=== PATIENT | male | born 1945 | race Caucasian/White ===

== ENCOUNTER 2018-12-03 07:00 | Inpatient (IN) ==
[2018-12-03] MEDS ORDERED: GLUCAGON 1 MG VIAL IM PRN ×2 (07:09→11:43)
[2018-12-03] MEDS ORDERED: DEXTROSE 10% 25 GM/250 ML BAG IV PRN ×2 (07:09→11:43)
[2018-12-03 10:34] LABS: Basophils # 0.1 10*3/uL (0.0-0.2); Basophils % 0.8 % (0.0-0.8); Eosinophils # 0.2 10*3/uL (0.0-0.87); Eosinophils % 2.6 % (0.00-10.9); Hematocrit 38.8 VOL% (42.0-52.0); Hemoglobin 12.9 GM/DL (14.0-18.0); Immature Granulocytes % 0.4 %; Immature Granulocytes Absolute 0.03 #; Lymphocytes # 1.3 10*3/uL (1.4-4.0); Lymphocytes % 17.6 % (21.2-54.2); Mean Corpuscular HGB Conc 33.2 GM/DL (32-36); Mean Platelet Volume 9.4 FL (9.6-12.0); Monocytes % 11.1 % (1.7-12.7); Neutrophils % 67.5 % (38.7-73.9); Platelet Count 207 T/CUMM (130-400); Red Blood Count 4.04 MC/CUMM (3.8-5.5); Red Cell Distribution Width 13.3 % (9.3-17.3); White Blood Count 7.2 T/CUMM (4-12)
[2018-12-03 10:53] LABS: Albumin 3.8 G/DL (3.4-5.0); Bilirubin,Total 0.4 MG/DL (0.2-1.0); Calcium 9.3 MG/DL (8.5-10.1); Osmolality,Calculated 294.8 MOS/KG (273-304); Total Protein 7.5 G/DL (6.4-8.3)
[2018-12-03] MEDS: INSULIN LISPRO 100 UNIT/ML SUBCUT SCH ×2 (10:58→23:07)
[2018-12-03] MEDS: ISOSORBIDE MONONITRATE 30 MG TABLET PO SCH (10:58)
[2018-12-03] MEDS: ASPIRIN EC 81 MG TABLET PO SCH (10:58)
[2018-12-03] MEDS: FUROSEMIDE 40 MG TABLET PO SCH (10:59)
[2018-12-03] MEDS: ATENOLOL 50 MG TABLET PO SCH ×2 (10:59→22:00)
[2018-12-03] MEDS: LISINOPRIL 20 MG TABLET PO SCH (10:59)
[2018-12-03] MEDS: ATORVASTATIN 40 MG TABLET PO SCH (10:59)
[2018-12-03] MEDS: ALLOPURINOL 100 MG TABLET PO SCH (10:59)
[2018-12-03] MEDS: PANTOPRAZOLE 40 MG TABLET PO SCH (10:59)
[2018-12-03] MEDS: CETIRIZINE 10 MG TABLET PO SCH (11:00)
[2018-12-03] MEDS: CHLORHEXIDINE 0.12% ORAL RINSE 60 ML BOTTLE SWISH/SPIT SCH ×2 (15:39→22:00)
[2018-12-03] MEDS: CHLORHEXIDINE 4% SOLN 118 ML BOTTLE TOP SCH ×2 (15:39→21:00)
[2018-12-03] MEDS: SODIUM CHLORIDE 0.9% 1,000 ML IV SCH (16:04)
[2018-12-03] MEDS: INSULIN REGULAR 100 UNIT/ML SUBCUT SCH ×2 (17:02→22:00)
[2018-12-03 18:12] LABS: ABG Base Excess -3.8 MMOL/L (-2.5-2.5); ABG HCO3 21.3 MMOL/L (20-26); ABG Oxygen Saturation 97.4 % (95-100); ABG PCO2 34.6 MM HG (35-48); ABG PH 7.382 (7.35-7.45); ABG PO2 95.5 MM HG (80-95); ABG TCO2 18.2 MMOL/L (23-27); Allen Test Positive; Pt O2 Delivery Device Room Air
[2018-12-03] MEDS: INSULIN ASPART PROTAMINE/ASPART 70/30 100 UNIT/ML SUBCUT SCH (22:00)
[2018-12-04] MEDS ORDERED: PAPAVERINE 60 MG/2 ML VIAL ONE (04:23)
[2018-12-04] MEDS ORDERED: VANCOMYCIN 1,000 MG VIAL ONE ×2 (04:24→12:01)
[2018-12-04] MEDS: CHLORHEXIDINE 4% SOLN 118 ML BOTTLE TOP SCH (05:30)
[2018-12-04] MEDS ORDERED: CEFUROXIME INJ 1,500 MG in SYRINGE 1 EACH IV ONE (06:00)
[2018-12-04] MEDS ORDERED: DIAZEPAM 5 MG TABLET PO ONE (06:00)
[2018-12-04] MEDS ORDERED: SUFentanil 250 MCG/5 ML AMP ONE (06:23)
[2018-12-04] MEDS ORDERED: VECURONIUM 10 MG VIAL IV ONE (06:23)
[2018-12-04] MEDS ORDERED: AMINOCAPROIC ACID 5,000 MG/20 ML VIAL ONE (06:23)
[2018-12-04] MEDS ORDERED: PHENYLEPHRINE DRIP 20 MG/250 ML PREMIX IV ONE (06:23)
[2018-12-04] MEDS ORDERED: MIDAZOLAM 10 MG/2 ML VIAL ONE (06:23)
[2018-12-04] MEDS ORDERED: HEPARIN/NACL 0.9% 2 UNITS/ML 500 ML IV ONE (06:24)
[2018-12-04] MEDS ORDERED: CEFUROXIME 1,500 MG VIAL ONE (07:11)
[2018-12-04] MEDS ORDERED: SODIUM BICARBONATE 50 MEQ/50 ML VIAL IV ONE ×4 (07:53→19:00)
[2018-12-04] MEDS ORDERED: NITROPRUSSIDE 50 MG/2 ML VIAL ONE (07:53)
[2018-12-04] MEDS ORDERED: PHENYLEPHRINE DRIP 40 MG/250 ML PREMIX IV ONE (07:53)
[2018-12-04] MEDS ORDERED: CALCIUM CHLORIDE 1,000 MG/10 ML SYRINGE IV ONE (07:53)
[2018-12-04] MEDS ORDERED: ALBUMIN 5% 12.5 GM/250 ML VIAL IV ONE (07:54)
[2018-12-04] MEDS ORDERED: POTASSIUM CHLORIDE RIDER 100 ML IV ONE (07:54)
[2018-12-04 07:57] LABS: ABG HCO3 21.1 MMOL/L (20-26); ABG Oxygen Saturation 99.5 % (95-100); ABG PH 7.353 (7.35-7.45); ABG TCO2 18.7 MMOL/L (23-27); Glucose Heart Surgery 171 MG/DL (74-106); Hematocrit Heart Surgery 37.9 PERCENT (42-52); Hemoglobin Heart Surgery 12.3 G/DL (14.0-18.0); Ionized Calcium Arterial 1.26 MMOL/L (1.21-1.46); PH Patient Temp Arterial 7.353; Patient Temperature 37 CELCIUS; Potassium Heart/CVR 4.8 MMOL/L (3.5-5.1); Sodium Heart/CVR 138 MMOL/L (135-145)
[2018-12-04 08:19] LABS: Apearance,Urine CLEAR (Clear); Bilirubin,Urine Negative (Negative); Blood, Urine Negative (Negative); Glucose,Urine (UA) 50 mg/dL (Negative); Ketones,Urine Negative (Negative); Mucus,Urine Occasional /LPF (Occasional); Nitrite,Urine Negative (Negative); Protein,Urine Negative; Squamous Epithelial Cell,Urine Occasional /HPF (0-10); Urine Color Yellow (Yellow); Urine Specific Gravity 1.014 (1.001-1.035); Urine Urobilinogen < 2.0 EU/DL (0.2-1.0)
[2018-12-04 09:40] LABS: Hematocrit Heart Surgery 28.9 PERCENT (42-52); Hemoglobin Heart Surgery 9.3 G/DL (14.0-18.0); PCO2 Patient Temp Venous 37.7 MM HG; PH Patient Temp Venous 7.394; PO2 Patient Temp Venous 35.9 MM HG; Potassium Heart/CVR 5.9 MMOL/L (3.5-5.1); VBG Base Excess -1.4 MEQ/L (0-4); VBG HCO3 22.9 MEQ/L (24-28); VBG Oxygen Saturation 76.7 %; VBG PCO2 43.6 MMHG (41-51); VBG PH 7.351; VBG PO2 44.1 MMHG (17-40)
[2018-12-04 10:15] LABS: Hematocrit Heart Surgery 31.9 PERCENT (42-52); Hemoglobin Heart Surgery 10.3 G/DL (14.0-18.0); PCO2 Patient Temp Venous 34.6 MM HG; PH Patient Temp Venous 7.408; PO2 Patient Temp Venous 40.3 MM HG; Potassium Heart/CVR 5.9 MMOL/L (3.5-5.1); VBG Base Excess -2.3 MEQ/L (0-4); VBG HCO3 22.2 MEQ/L (24-28); VBG Oxygen Saturation 82.7 %; VBG PH 7.364; VBG PO2 49.5 MMHG (17-40)
[2018-12-04 11:13] LABS: ABG Base Excess -3.8 MMOL/L (-2.5-2.5); ABG HCO3 21.3 MMOL/L (20-26); ABG Oxygen Saturation 99.1 % (95-100); ABG PCO2 38.8 MM HG (35-48); ABG TCO2 19.5 MMOL/L (23-27); Glucose Heart Surgery 270 MG/DL (74-106); Hematocrit Heart Surgery 32.3 PERCENT (42-52); Hemoglobin Heart Surgery 10.5 G/DL (14.0-18.0); Ionized Calcium Arterial 1.29 MMOL/L (1.21-1.46); PCO2 Patient Temp Arterial 38.8 MMHG; Patient Temperature 37 CELCIUS; Potassium Heart/CVR 5.2 MMOL/L (3.5-5.1); Sodium Heart/CVR 133 MMOL/L (135-145)
[2018-12-04] MEDS ORDERED: THROMBIN TOPICAL (RECOMBINANT) 5,000 UNIT VIAL TOP ONE (11:16)
[2018-12-04] MEDS ORDERED: ALBUMIN 25% 25 GM/100 ML VIAL IV ONE (11:20)
[2018-12-04] MEDS ORDERED: DEXTROSE 5% KCL 20 MEQ 20 MEQ/1,000 ML BAG IV ONE (11:20)
[2018-12-04] MEDS ORDERED: MANNITOL 100 GM/500 ML BAG IV ONE (11:20)
[2018-12-04] MEDS ORDERED: methylPREDNISolone SOD SUC 1,000 MG/8 ML VIAL ONE (11:21)
[2018-12-04] MEDS ORDERED: FUROSEMIDE 20 MG/2 ML VIAL ONE (11:21)
[2018-12-04] MEDS ORDERED: PROTAMINE SULFATE 250 MG/25 ML VIAL IV ONE (11:21)
[2018-12-04] MEDS ORDERED: PROTAMINE SULFATE 50 MG/5 ML VIAL IV ONE (11:21)
[2018-12-04] MEDS ORDERED: MAGNESIUM SULFATE 5 GM/10 ML VIAL IV ONE (11:21)
[2018-12-04] MEDS ORDERED: HEPARIN 10,000 UNIT/10 ML VIAL ONE (11:21)
[2018-12-04] MEDS: INSULIN REGULAR 100 UNIT/ML SUBCUT SCH (11:41)
[2018-12-04] MEDS: ISOSORBIDE MONONITRATE 30 MG TABLET PO SCH (11:42)
[2018-12-04] MEDS: LISINOPRIL 20 MG TABLET PO SCH (11:42)
[2018-12-04] MEDS: CHLORHEXIDINE 0.12% ORAL RINSE 60 ML BOTTLE SWISH/SPIT SCH ×2 (11:42→22:08)
[2018-12-04] MEDS: FUROSEMIDE 40 MG TABLET PO SCH (11:42)
[2018-12-04] MEDS: ASPIRIN EC 81 MG TABLET PO SCH (11:42)
[2018-12-04] MEDS: SODIUM CHLORIDE 0.9% 1,000 ML IV SCH (11:42)
[2018-12-04] MEDS: ATORVASTATIN 40 MG TABLET PO SCH (11:42)
[2018-12-04] MEDS: INSULIN ASPART PROTAMINE/ASPART 70/30 100 UNIT/ML SUBCUT SCH (11:42)
[2018-12-04] MEDS: CETIRIZINE 10 MG TABLET PO SCH (11:43)
[2018-12-04] MEDS: ATENOLOL 50 MG TABLET PO SCH (11:43)
[2018-12-04] MEDS: ALLOPURINOL 100 MG TABLET PO SCH (11:43)
[2018-12-04] MEDS: PANTOPRAZOLE 40 MG TABLET PO SCH (11:43)
[2018-12-04] MEDS ORDERED: MORPHINE 10 MG/1 ML VIAL IV PRN (12:47)
[2018-12-04] MEDS ORDERED: VECURONIUM 10 MG VIAL IV PRN ×2 (12:47)
[2018-12-04] MEDS ORDERED: CALCIUM CHLORIDE 1,000 MG/10 ML SYRINGE IV PRN (12:47)
[2018-12-04] MEDS ORDERED: CALCIUM CHLORIDE 1,000 MG/10 ML VIAL IV ONE (12:47)
[2018-12-04] MEDS ORDERED: DEXTROSE 50% 25 GM/50 ML VIAL IV PRN ×2 (12:47)
[2018-12-04] MEDS ORDERED: ONDANSETRON 4 MG/2 ML VIAL IV PRN (12:47)
[2018-12-04] MEDS ORDERED: MAGNESIUM SULF RIDER 4 GM in PREMIX 1 EACH IV PRN (12:47)
[2018-12-04] MEDS ORDERED: MIDAZOLAM 2 MG/2 ML VIAL IV PRN (12:47)
[2018-12-04] MEDS ORDERED: MORPHINE 4 MG/1 ML VIAL IV PRN (12:47)
[2018-12-04] MEDS ORDERED: MAGNESIUM SULF RIDER 2 GM in PREMIX 1 EACH IV PRN (12:47)
[2018-12-04] MEDS ORDERED: LACTATED RINGERS 250 ML IV PRN (12:47)
[2018-12-04] MEDS ORDERED: PHENYLEPHRINE DRIP 40 MG/250 ML PREMIX IV PRN (12:47)
[2018-12-04] MEDS ORDERED: PROPOFOL 200 MG/20 ML VIAL IV ONE (12:47)
[2018-12-04] MEDS ORDERED: NITROPRUSSIDE 100 MG in DEXTROSE 5% 250 ML IV PRN (12:47)
[2018-12-04] MEDS ORDERED: MIDAZOLAM 10 MG/2 ML VIAL IV PRN (12:47)
[2018-12-04] MEDS ORDERED: POTASSIUM CHLORIDE RIDER 10 MEQ in PREMIX 1 EACH IV PRN (12:47)
[2018-12-04] MEDS ORDERED: SEVOFLURANE 1 UNIT/15 MINUTE INH ONE (12:47)
[2018-12-04] MEDS ORDERED: ACETAMINOPHEN 650 MG SUPP RECTAL PRN (12:47)
[2018-12-04] MEDS ORDERED: INSULIN REGULAR 100 UNIT/ML IV ONE (12:47)
[2018-12-04] MEDS ORDERED: ETOMIDATE 40 MG/20 ML VIAL IV ONE (12:48)
[2018-12-04] MEDS ORDERED: SUCCINYLCHOLINE 200 MG/10 ML VIAL ONE (12:48)
[2018-12-04] MEDS ORDERED: GLYCOPYRROLATE 0.4 MG/2 ML VIAL ONE (12:48)
[2018-12-04] MEDS ORDERED: SODIUM CHLORIDE 0.9% 2,000 ML IV ONE (12:48)
[2018-12-04] MEDS ORDERED: SODIUM CHLORIDE 0.9% 100 ML IV ONE (12:48)
[2018-12-04] MEDS ORDERED: PHENYLEPHRINE 1 MG/10 ML SYRINGE IV ONE (12:48)
[2018-12-04 12:57] LABS: ABG Base Excess -5.6 MMOL/L (-2.5-2.5); ABG HCO3 19.8 MMOL/L (20-26); ABG Oxygen Saturation 96.8 % (95-100); ABG PCO2 38.8 MM HG (35-48); ABG PO2 92.6 MM HG (80-95); ABG TCO2 18.3 MMOL/L (23-27); Glucose Heart Surgery 269 MG/DL (74-106); Hematocrit Heart Surgery 31.4 PERCENT (42-52); Hemoglobin Heart Surgery 10.1 G/DL (14.0-18.0)
[2018-12-04] MEDS ORDERED: SODIUM CHLORIDE 0.45% 1,000 ML IV SCH ×2 (13:00)
[2018-12-04 13:03] LABS: Basophils # 0.1 10*3/uL (0.0-0.2); Basophils % 0.4 % (0.0-0.8); Eosinophils # 0.1 10*3/uL (0.0-0.87); Eosinophils % 0.4 % (0.00-10.9); Hematocrit 29.7 VOL% (42.0-52.0); Hemoglobin 9.8 GM/DL (14.0-18.0); Immature Granulocytes % 0.8 %; Immature Granulocytes Absolute 0.09 #; Lymphocytes # 0.8 10*3/uL (1.4-4.0); Lymphocytes % 6.3 % (21.2-54.2); Mean Corpuscular Volume 97.1 FL (87-102); Mean Platelet Volume 10.1 FL (9.6-12.0); Monocytes % 3.2 % (1.7-12.7); Neutrophils % 88.9 % (38.7-73.9); Platelet Count 195 T/CUMM (130-400); Red Blood Count 3.06 MC/CUMM (3.8-5.5); Red Cell Distribution Width 13.6 % (9.3-17.3)
[2018-12-04 13:09] LABS: INR 1.1; PT Patient Result 11.9 SECS; Partial Thromboplastin Time 26.1 SECS (0-40)
[2018-12-04] MEDS: INSULIN REGULAR DRIP 100 ML IV SCH ×2 (13:10→19:45)
[2018-12-04 13:21] LABS: CKMB % 4.3 %
[2018-12-04] MEDS: POTASSIUM CHLORIDE RIDER 20 MEQ in PREMIX 1 EACH IV PRN ×2 (13:22→22:06)
[2018-12-04 13:24] LABS: Troponin I 5.01 NG/ML (0.00-0.045)
[2018-12-04 13:40] LABS: Albumin 3.1 G/DL (3.4-5.0); Calcium 8.4 MG/DL (8.5-10.1); Osmolality,Calculated 296.3 MOS/KG (273-304); Total Protein 5.8 G/DL (6.4-8.3)
[2018-12-04] MEDS: ALBUMIN 5% 12.5 GM in PREMIX 1 EACH IV PRN ×2 (13:40→15:46)
[2018-12-04] MEDS ORDERED: SODIUM CHLORIDE 0.9% 250 ML IV ONE (13:44)
[2018-12-04] MEDS: SODIUM CHLORIDE 0.9% 250 ML IV PRN ×6 (14:54→18:02)
[2018-12-04] MEDS: INSULIN REGULAR 100 UNIT/ML IV PRN ×2 (15:04→17:34)
[2018-12-04 15:50] LABS: ABG HCO3 20.3 MMOL/L (20-26); ABG Oxygen Saturation 97.9 % (95-100); ABG PCO2 41.6 MM HG (35-48); ABG TCO2 19.3 MMOL/L (23-27); Glucose Heart Surgery 224 MG/DL (74-106); Hematocrit Heart Surgery 30.5 PERCENT (42-52); Hemoglobin Heart Surgery 9.8 G/DL (14.0-18.0); Potassium Heart/CVR 4.2 MMOL/L (3.5-5.1)
[2018-12-04 18:15] LABS: ABG Base Excess -4.3 MMOL/L (-2.5-2.5); ABG HCO3 20.8 MMOL/L (20-26); ABG Oxygen Saturation 96.3 % (95-100); ABG PCO2 41.2 MM HG (35-48); ABG PH 7.324 (7.35-7.45); ABG PO2 88.4 MM HG (80-95); ABG TCO2 19.7 MMOL/L (23-27); Glucose Heart Surgery 177 MG/DL (74-106); Hematocrit Heart Surgery 30.5 PERCENT (42-52); Hemoglobin Heart Surgery 9.8 G/DL (14.0-18.0)
[2018-12-04 20:13] LABS: ABG HCO3 21.9 MMOL/L (20-26); ABG Oxygen Saturation 97.6 % (95-100); ABG PCO2 39.1 MM HG (35-48); ABG PH 7.361 (7.35-7.45); ABG PO2 98.8 MM HG (80-95); ABG TCO2 20.3 MMOL/L (23-27); Glucose Heart Surgery 169 MG/DL (74-106); Hematocrit Heart Surgery 29.2 PERCENT (42-52); Hemoglobin Heart Surgery 9.4 G/DL (14.0-18.0); Potassium Heart/CVR 4.2 MMOL/L (3.5-5.1)
[2018-12-04] MEDS: CEFUROXIME INJ 1,500 MG in SYRINGE 1 EACH IV SCH (21:32)
[2018-12-04 21:48] LABS: ABG Base Excess -3.3 MMOL/L (-2.5-2.5); ABG HCO3 21.6 MMOL/L (20-26); ABG Oxygen Saturation 95.2 % (95-100); ABG PCO2 38.1 MM HG (35-48); ABG PH 7.363 (7.35-7.45); ABG PO2 76.7 MM HG (80-95); Glucose Heart Surgery 167 MG/DL (74-106); Hematocrit Heart Surgery 28.9 PERCENT (42-52); Hemoglobin Heart Surgery 9.3 G/DL (14.0-18.0); Potassium Heart/CVR 4.1 MMOL/L (3.5-5.1)
[2018-12-04 21:57] LABS: CKMB % 3.5 %
[2018-12-04 21:58] LABS: Troponin I 3.59 NG/ML (0.00-0.045)
[2018-12-04] MEDS ORDERED: FUROSEMIDE 40 MG/4 ML VIAL IV PRN (22:00)
[2018-12-05 03:37] LABS: ABG Base Excess -2.2 MMOL/L (-2.5-2.5); ABG HCO3 22.4 MMOL/L (20-26); ABG Oxygen Saturation 93.1 % (95-100); ABG PCO2 36.1 MM HG (35-48); ABG PH 7.395 (7.35-7.45); ABG PO2 68.1 MM HG (80-95); ABG TCO2 19.3 MMOL/L (23-27); Glucose Heart Surgery 138 MG/DL (74-106); Hemoglobin Heart Surgery 13.3 G/DL (14.0-18.0); Potassium Heart/CVR 4.2 MMOL/L (3.5-5.1)
[2018-12-05 03:38] LABS: Hematocrit Heart Surgery 40.8 PERCENT (42-52)
[2018-12-05 03:51] LABS: Basophils % 0.1 % (0.0-0.8); Hematocrit 26.7 VOL% (42.0-52.0); Hemoglobin 8.7 GM/DL (14.0-18.0); Immature Granulocytes % 0.7 %; Immature Granulocytes Absolute 0.09 #; Lymphocytes # 0.5 10*3/uL (1.4-4.0); Lymphocytes % 3.9 % (21.2-54.2); Mean Corpuscular HGB Conc 32.6 GM/DL (32-36); Mean Corpuscular Volume 96.7 FL (87-102); Monocytes % 3.1 % (1.7-12.7); Neutrophils % 92.2 % (38.7-73.9); Platelet Count 172 T/CUMM (130-400); Red Blood Count 2.76 MC/CUMM (3.8-5.5); Red Cell Distribution Width 13.8 % (9.3-17.3); White Blood Count 12.7 T/CUMM (4-12)
[2018-12-05 04:04] LABS: Albumin 3.4 G/DL (3.4-5.0); Bilirubin,Direct 0.16 MG/DL (0.0-0.20); Bilirubin,Total 0.6 MG/DL (0.2-1.0); Calcium 8.4 MG/DL (8.5-10.1); Osmolality,Calculated 293.8 MOS/KG (273-304); Total Protein 6.1 G/DL (6.4-8.3)
[2018-12-05 04:06] LABS: Troponin I 3.05 NG/ML (0.00-0.045)
[2018-12-05 04:17] LABS: Lymphocytes 4 % (20-55); Segmented Neutrophils 95 % (50-85); Total Cells Counted 100
[2018-12-05 04:18] LABS: Hypochromasia 1+; Platelet Estimate Adequate
[2018-12-05 04:45] LABS: ABG Base Excess -2.6 MMOL/L (-2.5-2.5); ABG HCO3 22.2 MMOL/L (20-26); ABG Oxygen Saturation 97.3 % (95-100); ABG PCO2 34.9 MM HG (35-48); ABG PH 7.401 (7.35-7.45); ABG PO2 89.5 MM HG (80-95); Glucose Heart Surgery 130 MG/DL (74-106); Hematocrit Heart Surgery 27.4 PERCENT (42-52); Hemoglobin Heart Surgery 8.8 G/DL (14.0-18.0); Potassium Heart/CVR 4.1 MMOL/L (3.5-5.1)
[2018-12-05 04:52] LABS: Basophils % 0.2 % (0.0-0.8); Hematocrit 26.3 VOL% (42.0-52.0); Hemoglobin 8.6 GM/DL (14.0-18.0); Immature Granulocytes % 0.7 %; Immature Granulocytes Absolute 0.09 #; Lymphocytes # 0.5 10*3/uL (1.4-4.0); Mean Corpuscular HGB Conc 32.7 GM/DL (32-36); Mean Corpuscular Volume 98.1 FL (87-102); Mean Platelet Volume 9.7 FL (9.6-12.0); Monocytes % 3.7 % (1.7-12.7); Neutrophils % 91.4 % (38.7-73.9); Platelet Count 169 T/CUMM (130-400); Red Blood Count 2.68 MC/CUMM (3.8-5.5); Red Cell Distribution Width 13.9 % (9.3-17.3); White Blood Count 13.2 T/CUMM (4-12)
[2018-12-05 05:12] LABS: Hypochromasia 1+; Lymphocytes 5 % (20-55); Platelet Estimate Adequate; Segmented Neutrophils 94 % (50-85); Total Cells Counted 100
[2018-12-05] MEDS: INSULIN REGULAR DRIP 100 ML IV SCH (06:13)
[2018-12-05] MEDS: POTASSIUM CHLORIDE RIDER 20 MEQ in PREMIX 1 EACH IV PRN (06:36)
[2018-12-05] MEDS: SODIUM CHLORIDE 0.9% 250 ML IV PRN (06:45)
[2018-12-05] MEDS ORDERED: INSULIN REGULAR 100 UNIT/ML SUBCUT SCH (08:00)
[2018-12-05] MEDS ORDERED: GLUCAGON 1 MG VIAL IM PRN ×3 (08:17→11:11)
[2018-12-05] MEDS: CEFUROXIME INJ 1,500 MG in SYRINGE 1 EACH IV SCH (08:23)
[2018-12-05] MEDS: CHLORHEXIDINE 0.12% ORAL RINSE 60 ML BOTTLE SWISH/SPIT SCH ×3 (08:24→20:33)
[2018-12-05] MEDS: metFORMIN 500 MG TABLET PO SCH ×2 (09:15→20:33)
[2018-12-05] MEDS: ISOSORBIDE MONONITRATE 30 MG TABLET PO SCH (09:15)
[2018-12-05] MEDS: ALLOPURINOL 100 MG TABLET PO SCH (09:15)
[2018-12-05] MEDS: LISINOPRIL 20 MG TABLET PO SCH (09:15)
[2018-12-05] MEDS: ASPIRIN EC 81 MG TABLET PO SCH (09:16)
[2018-12-05] MEDS: ATORVASTATIN 40 MG TABLET PO SCH (09:16)
[2018-12-05] MEDS: ATENOLOL 50 MG TABLET PO SCH ×2 (09:16→20:33)
[2018-12-05] MEDS: CETIRIZINE 10 MG TABLET PO SCH (09:20)
[2018-12-05] MEDS ORDERED: MAGNESIUM SULF RIDER 4 GM in PREMIX 1 EACH IV PRN (11:11)
[2018-12-05] MEDS ORDERED: SODIUM CHLOR 0.45% KCL 20 MEQ 20 MEQ/1,000 ML BAG IV SCH (11:11)
[2018-12-05] MEDS ORDERED: ONDANSETRON 4 MG/2 ML VIAL IV PRN (11:11)
[2018-12-05] MEDS ORDERED: POTASSIUM CHLORIDE 20 MEQ TABLET PO PRN (11:11)
[2018-12-05] MEDS ORDERED: MAGNESIUM HYDROXIDE SUSP 30 ML UDCUP PO PRN (11:11)
[2018-12-05] MEDS ORDERED: ALUMINUM/MAGNES/SIMETH MAX STR 30 ML UDCUP PO PRN (11:11)
[2018-12-05] MEDS ORDERED: ACETAMINOPHEN 325 MG TABLET PO PRN (11:11)
[2018-12-05] MEDS ORDERED: MAGNESIUM SULF RIDER 2 GM in PREMIX 1 EACH IV PRN (11:11)
[2018-12-05] MEDS ORDERED: MORPHINE 4 MG/1 ML VIAL IV PRN (11:11)
[2018-12-05] MEDS ORDERED: DEXTROSE 50% 25 GM/50 ML VIAL IV PRN ×2 (11:11)
[2018-12-05] MEDS: FERROUS SULFATE 325 MG TABLET PO SCH (12:13)
[2018-12-05] MEDS: PANTOPRAZOLE 40 MG TABLET PO SCH (12:13)
[2018-12-05] MEDS: DOCUSATE SODIUM 100 MG CAPSULE PO SCH (12:13)
[2018-12-05] MEDS: oxyCODONE/ACETAMINOPHEN 5-325 MG TABLET PO PRN ×2 (12:13→19:08)
[2018-12-05] MEDS: ASCORBIC ACID 500 MG TABLET PO SCH (20:33)
[2018-12-06] MEDS: ZALEPLON 5 MG CAPSULE PO PRN (00:02)
[2018-12-06] MEDS: oxyCODONE/ACETAMINOPHEN 5-325 MG TABLET PO PRN ×4 (05:04→20:18)
[2018-12-06 05:18] LABS: Basophils % 0.1 % (0.0-0.8); Hematocrit 26.5 VOL% (42.0-52.0); Hemoglobin 8.5 GM/DL (14.0-18.0); Immature Granulocytes % 1.1 %; Lymphocytes # 0.8 10*3/uL (1.4-4.0); Lymphocytes % 4.1 % (21.2-54.2); Mean Corpuscular HGB Conc 32.1 GM/DL (32-36); Mean Corpuscular Volume 98.9 FL (87-102); Mean Platelet Volume 10.3 FL (9.6-12.0); Monocytes % 7.6 % (1.7-12.7); Neutrophils % 87.1 % (38.7-73.9); Platelet Count 171 T/CUMM (130-400); Red Blood Count 2.68 MC/CUMM (3.8-5.5); Red Cell Distribution Width 14.6 % (9.3-17.3); White Blood Count 18.6 T/CUMM (4-12)
[2018-12-06 05:39] LABS: Band Neutrophils 1 % (0-10); Hypochromasia 1+; Lymphocytes 3 % (20-55); Platelet Estimate Adequate; Segmented Neutrophils 91 % (50-85); Total Cells Counted 100
[2018-12-06 05:44] LABS: Alanine Aminotransferase 27 U/L (16-61); Albumin 3.1 G/DL (3.4-5.0); Alkaline Phosphatase 74 U/L (45-117); Aspartate Amino Transferase 27 U/L (0-37); Bilirubin,Indirect 0.4 MG/DL (0.0-1.0); Blood Urea Nitrogen 48 MG/DL (7-18); Calcium 8.3 MG/DL (8.5-10.1); Glucose 340 MG/DL (74-106); Osmolality,Calculated 300.7 MOS/KG (273-304); Total Protein 6.1 G/DL (6.4-8.3)
[2018-12-06] MEDS ORDERED: FUROSEMIDE 40 MG/4 ML VIAL IV ONE (06:00)
[2018-12-06] MEDS: DOCUSATE SODIUM 100 MG CAPSULE PO SCH (08:55)
[2018-12-06] MEDS: metFORMIN 500 MG TABLET PO SCH ×2 (08:55→20:18)
[2018-12-06] MEDS: LISINOPRIL 20 MG TABLET PO SCH (08:55)
[2018-12-06] MEDS: FERROUS SULFATE 325 MG TABLET PO SCH (08:55)
[2018-12-06] MEDS: ATENOLOL 50 MG TABLET PO SCH ×2 (08:56→20:18)
[2018-12-06] MEDS: ATORVASTATIN 40 MG TABLET PO SCH (08:56)
[2018-12-06] MEDS: ASPIRIN EC 81 MG TABLET PO SCH (08:58)
[2018-12-06] MEDS: PANTOPRAZOLE 40 MG TABLET PO SCH (08:58)
[2018-12-06] MEDS: ISOSORBIDE MONONITRATE 30 MG TABLET PO SCH (08:58)
[2018-12-06] MEDS: ASCORBIC ACID 500 MG TABLET PO SCH ×2 (08:58→20:18)
[2018-12-06] MEDS: CETIRIZINE 10 MG TABLET PO SCH (08:59)
[2018-12-06] MEDS: ALLOPURINOL 100 MG TABLET PO SCH (08:59)
[2018-12-06] MEDS: CHLORHEXIDINE 0.12% ORAL RINSE 60 ML BOTTLE SWISH/SPIT SCH ×2 (09:55→20:24)
[2018-12-06] MEDS: INSULIN LISPRO 100 UNIT/ML SUBCUT SCH ×4 (13:20→22:21)
[2018-12-07] MEDS: INSULIN LISPRO 100 UNIT/ML SUBCUT SCH ×9 (01:35→21:26)
[2018-12-07] MEDS: oxyCODONE/ACETAMINOPHEN 5-325 MG TABLET PO PRN ×3 (05:09→20:51)
[2018-12-07 05:23] LABS: Basophils % 0.2 % (0.0-0.8); Eosinophils # 0.1 10*3/uL (0.0-0.87); Eosinophils % 0.7 % (0.00-10.9); Hematocrit 25.7 VOL% (42.0-52.0); Hemoglobin 8.3 GM/DL (14.0-18.0); Immature Granulocytes % 1.1 %; Immature Granulocytes Absolute 0.14 #; Lymphocytes # 1.7 10*3/uL (1.4-4.0); Lymphocytes % 13.7 % (21.2-54.2); Mean Corpuscular HGB Conc 32.3 GM/DL (32-36); Mean Corpuscular Volume 98.8 FL (87-102); Mean Platelet Volume 10.1 FL (9.6-12.0); Monocytes % 9.8 % (1.7-12.7); NRBC # 0.02 10*3/uL; Neutrophils % 74.5 % (38.7-73.9); Platelet Count 163 T/CUMM (130-400); Red Cell Distribution Width 14.3 % (9.3-17.3); White Blood Count 12.3 T/CUMM (4-12)
[2018-12-07 05:49] LABS: Alanine Aminotransferase 22 U/L (16-61); Alkaline Phosphatase 68 U/L (45-117); Aspartate Amino Transferase 21 U/L (0-37); Bilirubin,Indirect 0.7 MG/DL (0.0-1.0); Blood Urea Nitrogen 56 MG/DL (7-18); Calcium 8.6 MG/DL (8.5-10.1); Glucose 129 MG/DL (74-106); Osmolality,Calculated 296.4 MOS/KG (273-304); Total Protein 6.2 G/DL (6.4-8.3); Troponin I 0.835 NG/ML (0.00-0.045)
[2018-12-07] MEDS: ASPIRIN EC 81 MG TABLET PO SCH (09:50)
[2018-12-07] MEDS: LISINOPRIL 20 MG TABLET PO SCH (09:51)
[2018-12-07] MEDS: FERROUS SULFATE 325 MG TABLET PO SCH (09:51)
[2018-12-07] MEDS: ASCORBIC ACID 500 MG TABLET PO SCH ×2 (09:51→20:51)
[2018-12-07] MEDS: CHLORHEXIDINE 0.12% ORAL RINSE 60 ML BOTTLE SWISH/SPIT SCH ×2 (09:51→21:05)
[2018-12-07] MEDS: ISOSORBIDE MONONITRATE 30 MG TABLET PO SCH (09:51)
[2018-12-07] MEDS: DOCUSATE SODIUM 100 MG CAPSULE PO SCH (09:51)
[2018-12-07] MEDS: ATENOLOL 50 MG TABLET PO SCH ×2 (09:51→20:51)
[2018-12-07] MEDS: metFORMIN 500 MG TABLET PO SCH ×2 (09:51→20:51)
[2018-12-07] MEDS: ALLOPURINOL 100 MG TABLET PO SCH (09:51)
[2018-12-07] MEDS: ATORVASTATIN 40 MG TABLET PO SCH (09:51)
[2018-12-07] MEDS: PANTOPRAZOLE 40 MG TABLET PO SCH (09:51)
[2018-12-07] MEDS: CETIRIZINE 10 MG TABLET PO SCH (09:52)
[2018-12-07] MEDS: ZALEPLON 5 MG CAPSULE PO PRN (22:20)
[2018-12-08] MEDS: oxyCODONE/ACETAMINOPHEN 5-325 MG TABLET PO PRN (04:39)
[2018-12-08] MEDS ORDERED: hydrALAZINE 20 MG/1 ML VIAL IV PRN (06:51)
[2018-12-08] MEDS: INSULIN LISPRO 100 UNIT/ML SUBCUT SCH ×7 (08:30→23:10)
[2018-12-08] MEDS: FERROUS SULFATE 325 MG TABLET PO SCH (09:52)
[2018-12-08] MEDS: BENZONATATE 100 MG CAPSULE PO SCH ×3 (09:52→20:25)
[2018-12-08] MEDS: CHLORHEXIDINE 0.12% ORAL RINSE 60 ML BOTTLE SWISH/SPIT SCH ×2 (09:52→20:24)
[2018-12-08] MEDS: PANTOPRAZOLE 40 MG TABLET PO SCH (09:52)
[2018-12-08] MEDS: ASCORBIC ACID 500 MG TABLET PO SCH ×2 (09:52→20:25)
[2018-12-08] MEDS: ASPIRIN EC 81 MG TABLET PO SCH (09:52)
[2018-12-08] MEDS: LISINOPRIL 20 MG TABLET PO SCH (09:52)
[2018-12-08] MEDS: DOCUSATE SODIUM 100 MG CAPSULE PO SCH (09:53)
[2018-12-08] MEDS: ATORVASTATIN 40 MG TABLET PO SCH (09:53)
[2018-12-08] MEDS: ISOSORBIDE MONONITRATE 30 MG TABLET PO SCH (09:53)
[2018-12-08] MEDS: ATENOLOL 50 MG TABLET PO SCH ×2 (09:53→20:25)
[2018-12-08] MEDS: CETIRIZINE 10 MG TABLET PO SCH (09:53)
[2018-12-08] MEDS: ALLOPURINOL 100 MG TABLET PO SCH (09:53)
[2018-12-08] MEDS: HYDROcodone/CHLORPHENIRAMINE ER 5 ML UDCUP PO PRN ×2 (12:40→20:24)
[2018-12-08] MEDS: ZALEPLON 5 MG CAPSULE PO PRN (20:25)
[2018-12-09 05:13] LABS: Basophils % 0.2 % (0.0-0.8); Eosinophils # 0.2 10*3/uL (0.0-0.87); Eosinophils % 2.8 % (0.00-10.9); Hemoglobin 8.2 GM/DL (14.0-18.0); Immature Granulocytes % 1.2 %; Lymphocytes # 1.2 10*3/uL (1.4-4.0); Lymphocytes % 13.9 % (21.2-54.2); Mean Corpuscular HGB Conc 32.8 GM/DL (32-36); Mean Corpuscular Volume 97.7 FL (87-102); Mean Platelet Volume 10.2 FL (9.6-12.0); NRBC # 0.02 10*3/uL; Neutrophils % 73.9 % (38.7-73.9); Platelet Count 236 T/CUMM (130-400); Red Blood Count 2.56 MC/CUMM (3.8-5.5); Red Cell Distribution Width 13.9 % (9.3-17.3); White Blood Count 8.5 T/CUMM (4-12)
[2018-12-09 05:38] LABS: Alanine Aminotransferase 26 U/L (16-61); Albumin 2.8 G/DL (3.4-5.0); Alkaline Phosphatase 82 U/L (45-117); Aspartate Amino Transferase 23 U/L (0-37); Bilirubin,Indirect 0.4 MG/DL (0.0-1.0); Blood Urea Nitrogen 44 MG/DL (7-18); Glucose 172 MG/DL (74-106); Osmolality,Calculated 291.5 MOS/KG (273-304); Total Protein 6.5 G/DL (6.4-8.3)
[2018-12-09 05:39] LABS: Troponin I 0.173 NG/ML (0.00-0.045)
[2018-12-09] MEDS: INSULIN LISPRO 100 UNIT/ML SUBCUT SCH ×6 (08:55→21:35)
[2018-12-09] MEDS: ATORVASTATIN 40 MG TABLET PO SCH (08:57)
[2018-12-09] MEDS: FERROUS SULFATE 325 MG TABLET PO SCH (08:57)
[2018-12-09] MEDS: ALLOPURINOL 100 MG TABLET PO SCH (08:57)
[2018-12-09] MEDS: ASCORBIC ACID 500 MG TABLET PO SCH ×2 (08:57→20:50)
[2018-12-09] MEDS: DOCUSATE SODIUM 100 MG CAPSULE PO SCH (08:57)
[2018-12-09] MEDS: ATENOLOL 50 MG TABLET PO SCH ×2 (08:57→20:50)
[2018-12-09] MEDS: CETIRIZINE 10 MG TABLET PO SCH (08:58)
[2018-12-09] MEDS: ASPIRIN EC 81 MG TABLET PO SCH (08:58)
[2018-12-09] MEDS: BENZONATATE 100 MG CAPSULE PO SCH ×3 (08:58→20:50)
[2018-12-09] MEDS: ISOSORBIDE MONONITRATE 30 MG TABLET PO SCH (08:58)
[2018-12-09] MEDS: CHLORHEXIDINE 0.12% ORAL RINSE 60 ML BOTTLE SWISH/SPIT SCH ×2 (08:58→20:50)
[2018-12-09] MEDS: LISINOPRIL 20 MG TABLET PO SCH (08:58)
[2018-12-09] MEDS: PANTOPRAZOLE 40 MG TABLET PO SCH (08:58)
[2018-12-09] MEDS: HYDROcodone/CHLORPHENIRAMINE ER 5 ML UDCUP PO PRN ×3 (11:05→20:54)
[2018-12-09] MEDS: ZALEPLON 5 MG CAPSULE PO PRN (20:50)
[2018-12-10] MEDS: oxyCODONE/ACETAMINOPHEN 5-325 MG TABLET PO PRN ×2 (00:19→21:06)
[2018-12-10 04:30] LABS: Basophils % 0.3 % (0.0-0.8); Eosinophils # 0.2 10*3/uL (0.0-0.87); Eosinophils % 2.6 % (0.00-10.9); Hematocrit 25.5 VOL% (42.0-52.0); Hemoglobin 8.3 GM/DL (14.0-18.0); Immature Granulocytes % 1.4 %; Immature Granulocytes Absolute 0.12 #; Lymphocytes # 1.4 10*3/uL (1.4-4.0); Lymphocytes % 16.1 % (21.2-54.2); Mean Corpuscular HGB Conc 32.5 GM/DL (32-36); Mean Corpuscular Volume 97.7 FL (87-102); Monocytes % 9.6 % (1.7-12.7); Platelet Count 288 T/CUMM (130-400); Red Blood Count 2.61 MC/CUMM (3.8-5.5); Red Cell Distribution Width 13.9 % (9.3-17.3); White Blood Count 8.7 T/CUMM (4-12)
[2018-12-10 04:48] LABS: Alanine Aminotransferase 36 U/L (16-61); Albumin 2.8 G/DL (3.4-5.0); Alkaline Phosphatase 96 U/L (45-117); Aspartate Amino Transferase 28 U/L (0-37); Bilirubin,Indirect 0.7 MG/DL (0.0-1.0); Blood Urea Nitrogen 45 MG/DL (7-18); Glucose 157 MG/DL (74-106); Osmolality,Calculated 289.7 MOS/KG (273-304); Total Protein 6.6 G/DL (6.4-8.3)
[2018-12-10 04:50] LABS: Troponin I 0.124 NG/ML (0.00-0.045)
[2018-12-10] MEDS: INSULIN LISPRO 100 UNIT/ML SUBCUT SCH ×5 (09:35→21:00)
[2018-12-10] MEDS: ISOSORBIDE MONONITRATE 30 MG TABLET PO SCH (09:37)
[2018-12-10] MEDS: ASPIRIN EC 81 MG TABLET PO SCH (09:37)
[2018-12-10] MEDS: ATORVASTATIN 40 MG TABLET PO SCH (09:37)
[2018-12-10] MEDS: BENZONATATE 100 MG CAPSULE PO SCH ×3 (09:37→21:07)
[2018-12-10] MEDS: ASCORBIC ACID 500 MG TABLET PO SCH ×2 (09:37→21:06)
[2018-12-10] MEDS: LISINOPRIL 20 MG TABLET PO SCH (09:37)
[2018-12-10] MEDS: DOCUSATE SODIUM 100 MG CAPSULE PO SCH (09:37)
[2018-12-10] MEDS: PANTOPRAZOLE 40 MG TABLET PO SCH (09:38)
[2018-12-10] MEDS: FERROUS SULFATE 325 MG TABLET PO SCH (09:38)
[2018-12-10] MEDS: CETIRIZINE 10 MG TABLET PO SCH (09:38)
[2018-12-10] MEDS: ALLOPURINOL 100 MG TABLET PO SCH (09:38)
[2018-12-10] MEDS: ATENOLOL 50 MG TABLET PO SCH ×2 (09:38→21:07)
[2018-12-10] MEDS: CHLORHEXIDINE 0.12% ORAL RINSE 60 ML BOTTLE SWISH/SPIT SCH ×2 (09:38→21:08)
[2018-12-10] MEDS: HYDROcodone/CHLORPHENIRAMINE ER 5 ML UDCUP PO PRN ×2 (12:17→21:06)
[2018-12-10] MEDS: INSULIN ASPART PROTAMINE/ASPART 70/30 100 UNIT/ML SUBCUT SCH (21:00)
[2018-12-10] MEDS: ZALEPLON 5 MG CAPSULE PO PRN (21:06)
[2018-12-11 08:34] VITALS: BP 124/59
[2018-12-11] MEDS: LISINOPRIL 20 MG TABLET PO SCH (09:48)
[2018-12-11] MEDS: ASCORBIC ACID 500 MG TABLET PO SCH (09:48)
[2018-12-11] MEDS: PANTOPRAZOLE 40 MG TABLET PO SCH (09:49)
[2018-12-11] MEDS: ISOSORBIDE MONONITRATE 30 MG TABLET PO SCH (09:49)
[2018-12-11] MEDS: ASPIRIN EC 81 MG TABLET PO SCH (09:49)
[2018-12-11] MEDS: ALLOPURINOL 100 MG TABLET PO SCH (09:49)
[2018-12-11] MEDS: ATORVASTATIN 40 MG TABLET PO SCH (09:49)
[2018-12-11] MEDS: DOCUSATE SODIUM 100 MG CAPSULE PO SCH (09:49)
[2018-12-11] MEDS: FERROUS SULFATE 325 MG TABLET PO SCH (09:49)
[2018-12-11] MEDS: CETIRIZINE 10 MG TABLET PO SCH (09:49)
[2018-12-11] MEDS: BENZONATATE 100 MG CAPSULE PO SCH (09:50)
[2018-12-11] MEDS: INSULIN LISPRO 100 UNIT/ML SUBCUT SCH (09:55)
[2018-12-11] MEDS: HYDROcodone/CHLORPHENIRAMINE ER 5 ML UDCUP PO PRN (10:07)
[2018-12-11] MEDS: INSULIN ASPART PROTAMINE/ASPART 70/30 100 UNIT/ML SUBCUT SCH (10:07)
[2018-12-11] MEDS: CHLORHEXIDINE 0.12% ORAL RINSE 60 ML BOTTLE SWISH/SPIT SCH (10:08)
[2018-12-11] MEDS: ATENOLOL 50 MG TABLET PO SCH (10:08)
== END 2018-12-11 11:31 | disposition home health service (06) | DRG 236 ==
LOC: N.4E 08:57 → N.CVR 12-04 08:55 → N.TELES 12-05 11:02

== ENCOUNTER 2021-03-31 15:28 | Inpatient (IN) ==
[2021-03-31] MEDS ORDERED: ACETAMINOPHEN 500 MG TABLET ONE (15:44)
[2021-03-31] MEDS ORDERED: ACETAMINOPHEN 500 MG TABLET PO STA (15:47)
[2021-03-31] MEDS ORDERED: SODIUM CHLORIDE 0.9% 500 ML IV STA (17:10)
[2021-03-31 18:10] LABS: Basophils # 0.1 10*3/uL (0.0-0.2); Basophils % 0.4 % (0.0-0.8); Eosinophils % 0.3 % (0.00-10.9); Hematocrit 31.2 VOL% (42.0-52.0); Hemoglobin 10.3 GM/DL (14.0-18.0); Immature Granulocytes % 0.8 %; Immature Granulocytes Absolute 0.09 #; Lymphocytes # 0.7 10*3/uL (1.4-4.0); Lymphocytes % 6.2 % (21.2-54.2); Mean Platelet Volume 9.9 FL (9.6-12.0); Monocytes % 6.9 % (1.7-12.7); Neutrophils % 85.4 % (38.7-73.9); Platelet Count 214 T/CUMM (130-400); Red Blood Count 3.25 MC/CUMM (3.8-5.5); Red Cell Distribution Width 15.5 % (9.3-17.3)
[2021-03-31 18:20] LABS: Albumin 3.2 G/DL (3.4-5.0); Bilirubin,Total 1.1 MG/DL (0.20-1.00); Calcium 8.3 MG/DL (8.5-10.1); Osmolality,Calculated 279.2 MOS/KG (273-304); Potassium 4.1 MMOL/L (3.5-5.1); Total Protein 6.6 G/DL (6.4-8.2)
[2021-03-31] MEDS ORDERED: AZITHROMYCIN INJ 500 MG in SODIUM CHLORIDE 0.9% 250 ML IV STA (18:22)
[2021-03-31] MEDS ORDERED: methylPREDNISolone SOD SUC 125 MG/2 ML VIAL IV STA (18:22)
[2021-03-31] MEDS ORDERED: cefTRIAXone 1,000 MG in SODIUM CHLORIDE 0.9% 100 ML IV STA (18:22)
[2021-03-31 19:47] LABS: INR 1.2; PT Patient Result 12.7 SECS (10.5-12.0)
[2021-03-31] MEDS ORDERED: FUROSEMIDE 40 MG/4 ML VIAL IV STA (20:30)
[2021-03-31 21:05] LABS: Amorphous Crystals,Urine Occasional /HPF (Few); Bilirubin,Urine Negative (Negative); Blood, Urine Small mg/dL (Negative); Glucose,Urine (UA) Negative (Negative); Ketones,Urine Negative (Negative); Nitrite,Urine Negative (Negative); Protein,Urine 100 MG/DL; RBC,Urine 2 /HPF (0-4); Squamous Epithelial Cell,Urine Occasional /HPF (0-10); Urine Appearance CLEAR (Clear); Urine Color Yellow (Yellow); Urine Specific Gravity 1.016 (1.001-1.035); Urine Urobilinogen < 2.0 EU/DL (0.2-1.0)
[2021-03-31] MEDS ORDERED: GLUCAGON 1 MG VIAL IM PRN (21:33)
[2021-03-31] MEDS ORDERED: ONDANSETRON 4 MG/2 ML VIAL IV PRN (21:33)
[2021-03-31] MEDS ORDERED: hydrALAZINE 20 MG/1 ML VIAL IV PRN (21:33)
[2021-03-31] MEDS ORDERED: ACETAMINOPHEN 325 MG TABLET PO PRN (21:33)
[2021-03-31] MEDS ORDERED: DEXTROSE 50% 25 GM/50 ML VIAL IV PRN (21:33)
[2021-03-31] MEDS ORDERED: SIMETHICONE CHEW 125 MG TABLET PO PRN (21:33)
[2021-03-31] MEDS ORDERED: POTASSIUM CHLORIDE 20 MEQ TABLET PO PRN (22:23)
[2021-03-31] MEDS ORDERED: MAGNESIUM SULF RIDER 4 GM/100 ML PREMIX IV PRN (22:23)
[2021-03-31] MEDS ORDERED: POTASSIUM CHLORIDE RIDER 10 MEQ/100 ML PREMIX IV PRN (22:23)
[2021-03-31] MEDS ORDERED: MAGNESIUM SULF RIDER 2 GM/50 ML PREMIX IV PRN (22:23)
[2021-03-31] MEDS: cefTRIAXone 1,000 MG in SODIUM CHLORIDE 0.9% 100 ML IV SCH (22:40)
[2021-03-31] MEDS: GABAPENTIN 400 MG CAPSULE PO SCH (22:42)
[2021-04-01] MEDS: AZITHROMYCIN INJ 500 MG in SODIUM CHLORIDE 0.9% 250 ML IV SCH ×2 (00:11→22:01)
[2021-04-01] MEDS: ALBUTEROL 2.5 MG/3 ML NEB RESP TX SCH ×4 (01:26→21:45)
[2021-04-01 06:27] LABS: Basophils % 0.1 % (0.0-0.8); Hematocrit 29.1 VOL% (42.0-52.0); Hemoglobin 9.2 GM/DL (14.0-18.0); Immature Granulocytes % 0.6 %; Immature Granulocytes Absolute 0.07 #; Lymphocytes # 0.4 10*3/uL (1.4-4.0); Lymphocytes % 3.7 % (21.2-54.2); Mean Corpuscular HGB Conc 31.6 GM/DL (32-36); Mean Corpuscular Volume 97.3 FL (87-102); Mean Platelet Volume 10.1 FL (9.6-12.0); Monocytes % 1.6 % (1.7-12.7); Platelet Count 207 T/CUMM (130-400); Red Blood Count 2.99 MC/CUMM (3.8-5.5); Red Cell Distribution Width 15.2 % (9.3-17.3); White Blood Count 11.6 T/CUMM (4-12)
[2021-04-01 06:50] LABS: Band Neutrophils 1 % (0-10); Hypochromasia 1+; Lymphocytes 1 % (20-55); Microcytosis 1+; Platelet Estimate Adequate; Segmented Neutrophils 97 % (50-85); Total Cells Counted 100
[2021-04-01] MEDS ORDERED: ISOSORBIDE MONONITRATE 30 MG TABLET PO SCH (09:00)
[2021-04-01] MEDS ORDERED: allopurinoL 100 MG TABLET PO SCH (09:00)
[2021-04-01] MEDS ORDERED: PANTOPRAZOLE 40 MG TABLET PO SCH (09:00)
[2021-04-01] MEDS ORDERED: lisinopriL 20 MG TABLET PO SCH (09:00)
[2021-04-01] MEDS ORDERED: FUROSEMIDE 40 MG/4 ML VIAL IV SCH (09:00)
[2021-04-01] MEDS ORDERED: atenoloL 50 MG TABLET PO SCH (09:00)
[2021-04-01] MEDS ORDERED: CLOPIDOGREL 75 MG TABLET PO SCH (09:00)
[2021-04-01] MEDS: GABAPENTIN 400 MG CAPSULE PO SCH ×3 (09:56→20:37)
[2021-04-01] MEDS: DOCUSATE SODIUM 100 MG CAPSULE PO SCH ×3 (09:56→20:37)
[2021-04-01] MEDS: INSULIN REGULAR 100 UNIT/ML SUBCUT SCH ×5 (10:06→20:37)
[2021-04-01] MEDS: INSULIN ASPART PROTAMINE/ASPART 70/30 100 UNIT/ML SUBCUT SCH ×2 (10:07→16:43)
[2021-04-01 10:11] LABS: Calcium 8.8 MG/DL (8.5-10.1); Osmolality,Calculated 296.7 MOS/KG (273-304); Potassium 4.2 MMOL/L (3.5-5.1); Risk Ratio 2.62; VLDL Cholesterol 23.8 MG/DL
[2021-04-01] MEDS ORDERED: INSULIN REGULAR 100 UNIT/ML SUBCUT ONE ×4 (15:15→18:19)
[2021-04-01] MEDS ORDERED: INSULIN GLARGINE 100 UNIT/ML SUBCUT ONE (15:18)
[2021-04-01] MEDS ORDERED: CHOLECALCIFEROL 1,000 UNIT TABLET PO SCH (21:00)
[2021-04-01] MEDS ORDERED: ATORVASTATIN 40 MG TABLET PO SCH (21:00)
[2021-04-01] MEDS: cefTRIAXone 1,000 MG in SODIUM CHLORIDE 0.9% 100 ML IV SCH (21:28)
[2021-04-02] MEDS: ALBUTEROL 2.5 MG/3 ML NEB RESP TX SCH (01:25)
[2021-04-02 05:57] VITALS: BP 110/50
[2021-04-02] MEDS ORDERED: predniSONE 20 MG TABLET PO SCH (09:00)
== END 2021-04-02 07:35 | disposition home or self-care (01) | DRG 190 ==
LOC: N.ED 15:28 → N.EDINP 21:33 → N.TELES 04-01 01:47
PROVIDERS: ADMIT Internal Medicine; ATTEND Internal Medicine

== ENCOUNTER 2022-03-20 06:47 | Inpatient (IN) ==
[2022-03-20] MEDS ORDERED: PANTOPRAZOLE INJ 80 MG in SODIUM CHLORIDE 0.9% 100 ML IV STA (07:19)
[2022-03-20] MEDS ORDERED: SODIUM CHLORIDE 0.9% 1,000 ML IV PRN (07:21)
[2022-03-20] MEDS ORDERED: PANTOPRAZOLE 40 MG VIAL IV ONE (07:30)
[2022-03-20 08:04] LABS: Basophils % 0.5 % (0.0-0.8); Eosinophils # 0.1 10*3/uL (0.0-0.87); Eosinophils % 3.3 % (0.00-10.9); Hematocrit 20.4 VOL% (42.0-52.0); Immature Granulocytes % 0.9 %; Immature Granulocytes Absolute 0.04 #; Lymphocytes # 0.4 10*3/uL (1.4-4.0); Lymphocytes % 9.8 % (21.2-54.2); Mean Corpuscular HGB Conc 31.4 GM/DL (32-36); Mean Platelet Volume 9.9 FL (9.6-12.0); Monocytes # 0.5 10*3/uL (0.11-0.8); Monocytes % 11.5 % (1.7-12.7); Platelet Count 207 T/CUMM (130-400); Red Blood Count 1.98 MC/CUMM (3.8-5.5); Red Cell Distribution Width 19.7 % (9.3-17.3); White Blood Count 4.3 T/CUMM (4-12)
[2022-03-20 08:07] LABS: Hemoglobin 6.4 GM/DL (14.0-18.0)
[2022-03-20 08:10] LABS: INR 1.1; Partial Thromboplastin Time 33.8 SECS (23.7-32.9)
[2022-03-20 08:17] LABS: Albumin 3.2 G/DL (3.4-5.0); Bilirubin,Total 0.5 MG/DL (0.20-1.00); Calcium 9.2 MG/DL (8.5-10.1); Osmolality,Calculated 313.8 MOS/KG (273-304); Potassium 4.2 MMOL/L (3.5-5.1)
[2022-03-20] MEDS ORDERED: FUROSEMIDE 40 MG/4 ML VIAL IV ONE (08:44)
[2022-03-20] MEDS ORDERED: ONDANSETRON 4 MG/2 ML VIAL IV PRN (08:46)
[2022-03-20] MEDS ORDERED: SODIUM CHLORIDE 0.9% 1,000 ML IV SCH (09:00)
[2022-03-20] MEDS: PANTOPRAZOLE 40 MG VIAL IV SCH ×2 (09:38→20:35)
[2022-03-20 10:16] LABS: Hematocrit 21.1 VOL% (42.0-52.0); Hemoglobin 6.6 GM/DL (14.0-18.0)
[2022-03-20] MEDS: INSULIN REGULAR 100 UNIT/ML SUBCUT SCH ×3 (14:59→20:35)
[2022-03-20] MEDS: AMIODARONE 200 MG TABLET PO SCH ×2 (17:34→20:32)
[2022-03-20 20:28] LABS: Hemoglobin 7.1 GM/DL (14.0-18.0)
[2022-03-20] MEDS: GABAPENTIN 400 MG CAPSULE PO SCH (20:32)
[2022-03-20] MEDS: ATORVASTATIN 40 MG TABLET PO SCH (20:32)
[2022-03-20] MEDS: LACTATED RINGERS 1,000 ML IV SCH (20:37)
[2022-03-20] MEDS: DILTIAZEM CD 120 MG CAPSULE PO SCH (21:18)
[2022-03-21 01:30] LABS: Hematocrit 22.2 VOL% (42.0-52.0); Hemoglobin 7.1 GM/DL (14.0-18.0)
[2022-03-21 05:32] LABS: Basophils % 0.4 % (0.0-0.8); Eosinophils # 0.2 10*3/uL (0.0-0.87); Eosinophils % 3.3 % (0.00-10.9); Hematocrit 22.4 VOL% (42.0-52.0); Hemoglobin 7.1 GM/DL (14.0-18.0); Immature Granulocytes % 0.4 %; Immature Granulocytes Absolute 0.02 #; Lymphocytes # 0.4 10*3/uL (1.4-4.0); Lymphocytes % 8.8 % (21.2-54.2); Mean Corpuscular HGB Conc 31.7 GM/DL (32-36); Mean Corpuscular Volume 99.6 FL (87-102); Mean Platelet Volume 9.7 FL (9.6-12.0); Monocytes # 0.6 10*3/uL (0.11-0.8); Monocytes % 12.9 % (1.7-12.7); Neutrophils % 74.2 % (38.7-73.9); Platelet Count 174 T/CUMM (130-400); Red Blood Count 2.25 MC/CUMM (3.8-5.5); Red Cell Distribution Width 19.9 % (9.3-17.3); White Blood Count 4.6 T/CUMM (4-12)
[2022-03-21] MEDS: INSULIN REGULAR 100 UNIT/ML SUBCUT SCH ×4 (08:11→20:48)
[2022-03-21] MEDS: GABAPENTIN 400 MG CAPSULE PO SCH ×2 (10:08→20:45)
[2022-03-21] MEDS: AMIODARONE 200 MG TABLET PO SCH ×2 (10:08→20:45)
[2022-03-21] MEDS: ISOSORBIDE MONONITRATE 30 MG TABLET PO SCH (10:09)
[2022-03-21] MEDS: metOLazone 2.5 MG TABLET PO SCH (10:09)
[2022-03-21] MEDS: TORSEMIDE 20 MG TABLET PO SCH (10:09)
[2022-03-21] MEDS: DAPAGLIFLOZIN 10 MG TABLET PO SCH (10:11)
[2022-03-21] MEDS: allopurinoL 100 MG TABLET PO SCH (10:11)
[2022-03-21] MEDS: PANTOPRAZOLE 40 MG VIAL IV SCH ×2 (10:13→20:46)
[2022-03-21 11:19] LABS: % Iron Saturation 7.3 % (18-50)
[2022-03-21 11:29] LABS: Folate 5.64 NG/ML (5.38-24.0)
[2022-03-21 15:02] LABS: Free T4 (Free Thyroxine) 0.92 NG/DL (0.76-1.46)
[2022-03-21] MEDS: INSULIN NPH/REG 70/30 100 UNIT/ML SUBCUT SCH (16:52)
[2022-03-21] MEDS: atenoloL 50 MG TABLET PO SCH (19:55)
[2022-03-21] MEDS: FERRIC GLUCONATE COMPLEX 125 MG in SODIUM CHLORIDE 0.9% 100 ML IV SCH (19:55)
[2022-03-21] MEDS: LACTATED RINGERS 1,000 ML IV SCH (20:04)
[2022-03-21] MEDS: ATORVASTATIN 40 MG TABLET PO SCH (20:45)
[2022-03-21] MEDS: DILTIAZEM CD 120 MG CAPSULE PO SCH (20:45)
[2022-03-21] MEDS: traZODone 50 MG TABLET PO PRN (20:45)
[2022-03-22 05:21] LABS: Basophils % 0.5 % (0.0-0.8); Eosinophils # 0.2 10*3/uL (0.0-0.87); Eosinophils % 4.3 % (0.00-10.9); Hematocrit 21.3 VOL% (42.0-52.0); Hemoglobin 6.7 GM/DL (14.0-18.0); Immature Granulocytes % 0.2 %; Immature Granulocytes Absolute 0.01 #; Lymphocytes # 0.4 10*3/uL (1.4-4.0); Lymphocytes % 9.1 % (21.2-54.2); Mean Corpuscular HGB Conc 31.5 GM/DL (32-36); Mean Corpuscular Volume 100.5 FL (87-102); Mean Platelet Volume 9.4 FL (9.6-12.0); Monocytes # 0.5 10*3/uL (0.11-0.8); Monocytes % 11.8 % (1.7-12.7); Neutrophils % 74.1 % (38.7-73.9); Platelet Count 189 T/CUMM (130-400); Red Blood Count 2.12 MC/CUMM (3.8-5.5); Red Cell Distribution Width 19.7 % (9.3-17.3); White Blood Count 4.2 T/CUMM (4-12)
[2022-03-22 05:46] LABS: Calcium 8.9 MG/DL (8.5-10.1); Osmolality,Calculated 315.5 MOS/KG (273-304); Potassium 4.4 MMOL/L (3.5-5.1)
[2022-03-22] MEDS: INSULIN REGULAR 100 UNIT/ML SUBCUT SCH ×4 (09:07→20:33)
[2022-03-22] MEDS: INSULIN NPH/REG 70/30 100 UNIT/ML SUBCUT SCH ×2 (09:07→17:10)
[2022-03-22] MEDS: TORSEMIDE 20 MG TABLET PO SCH (09:08)
[2022-03-22] MEDS: metOLazone 2.5 MG TABLET PO SCH (09:08)
[2022-03-22] MEDS: DAPAGLIFLOZIN 10 MG TABLET PO SCH (09:08)
[2022-03-22] MEDS: atenoloL 50 MG TABLET PO SCH (09:09)
[2022-03-22] MEDS: ISOSORBIDE MONONITRATE 30 MG TABLET PO SCH (09:09)
[2022-03-22] MEDS: AMIODARONE 200 MG TABLET PO SCH ×2 (09:09→21:12)
[2022-03-22] MEDS: allopurinoL 100 MG TABLET PO SCH (09:09)
[2022-03-22] MEDS: PANTOPRAZOLE 40 MG VIAL IV SCH ×2 (09:10→21:13)
[2022-03-22] MEDS: FERRIC GLUCONATE COMPLEX 125 MG in SODIUM CHLORIDE 0.9% 100 ML IV SCH (09:31)
[2022-03-22] MEDS ORDERED: SODIUM CHLORIDE 0.9% 1,000 ML IV PRN ×3 (10:15→10:53)
[2022-03-22] MEDS: GABAPENTIN 400 MG CAPSULE PO SCH ×2 (12:56→21:12)
[2022-03-22] MEDS: traZODone 50 MG TABLET PO PRN (21:11)
[2022-03-22] MEDS: ATORVASTATIN 40 MG TABLET PO SCH (21:11)
[2022-03-22] MEDS: DILTIAZEM CD 120 MG CAPSULE PO SCH (21:12)
[2022-03-23 05:03] LABS: Basophils % 0.4 % (0.0-0.8); Eosinophils # 0.2 10*3/uL (0.0-0.87); Eosinophils % 3.7 % (0.00-10.9); Hematocrit 25.2 VOL% (42.0-52.0); Hemoglobin 8.1 GM/DL (14.0-18.0); Immature Granulocytes % 0.4 %; Immature Granulocytes Absolute 0.02 #; Lymphocytes # 0.4 10*3/uL (1.4-4.0); Lymphocytes % 8.3 % (21.2-54.2); Mean Corpuscular HGB Conc 32.1 GM/DL (32-36); Mean Corpuscular Volume 97.7 FL (87-102); Mean Platelet Volume 9.4 FL (9.6-12.0); Monocytes # 0.6 10*3/uL (0.11-0.8); Monocytes % 11.9 % (1.7-12.7); Neutrophils % 75.3 % (38.7-73.9); Platelet Count 203 T/CUMM (130-400); Red Blood Count 2.58 MC/CUMM (3.8-5.5); Red Cell Distribution Width 19.3 % (9.3-17.3); White Blood Count 5.2 T/CUMM (4-12)
[2022-03-23 05:39] LABS: Calcium 8.9 MG/DL (8.5-10.1); Osmolality,Calculated 309.7 MOS/KG (273-304); Potassium 4.3 MMOL/L (3.5-5.1)
[2022-03-23] MEDS: atenoloL 50 MG TABLET PO SCH (09:16)
[2022-03-23] MEDS: ISOSORBIDE MONONITRATE 30 MG TABLET PO SCH (09:16)
[2022-03-23] MEDS: DAPAGLIFLOZIN 10 MG TABLET PO SCH (09:16)
[2022-03-23] MEDS: GABAPENTIN 400 MG CAPSULE PO SCH ×2 (09:16→21:21)
[2022-03-23] MEDS: TORSEMIDE 20 MG TABLET PO SCH (09:16)
[2022-03-23] MEDS: metOLazone 2.5 MG TABLET PO SCH (09:17)
[2022-03-23] MEDS: PANTOPRAZOLE 40 MG VIAL IV SCH ×2 (09:17→21:42)
[2022-03-23] MEDS: allopurinoL 100 MG TABLET PO SCH (09:17)
[2022-03-23] MEDS: AMIODARONE 200 MG TABLET PO SCH ×2 (09:17→21:21)
[2022-03-23] MEDS: FERRIC GLUCONATE COMPLEX 125 MG in SODIUM CHLORIDE 0.9% 100 ML IV SCH (09:18)
[2022-03-23] MEDS: INSULIN REGULAR 100 UNIT/ML SUBCUT SCH ×4 (09:19→21:41)
[2022-03-23] MEDS: INSULIN NPH/REG 70/30 100 UNIT/ML SUBCUT SCH ×2 (09:21→17:40)
[2022-03-23] MEDS: ATORVASTATIN 40 MG TABLET PO SCH (21:21)
[2022-03-23] MEDS: DILTIAZEM CD 120 MG CAPSULE PO SCH (21:21)
[2022-03-23] MEDS: traZODone 50 MG TABLET PO PRN (21:22)
[2022-03-24 05:02] LABS: Basophils % 0.4 % (0.0-0.8); Eosinophils # 0.2 10*3/uL (0.0-0.87); Eosinophils % 5.2 % (0.00-10.9); Hematocrit 25.3 VOL% (42.0-52.0); Immature Granulocytes % 0.6 %; Immature Granulocytes Absolute 0.03 #; Lymphocytes # 0.4 10*3/uL (1.4-4.0); Lymphocytes % 9.1 % (21.2-54.2); Mean Corpuscular HGB Conc 31.6 GM/DL (32-36); Mean Corpuscular Volume 100.4 FL (87-102); Mean Platelet Volume 9.2 FL (9.6-12.0); Monocytes # 0.6 10*3/uL (0.11-0.8); Monocytes % 12.1 % (1.7-12.7); Neutrophils % 72.6 % (38.7-73.9); Platelet Count 193 T/CUMM (130-400); Red Blood Count 2.52 MC/CUMM (3.8-5.5); Red Cell Distribution Width 18.9 % (9.3-17.3); White Blood Count 4.6 T/CUMM (4-12)
[2022-03-24 05:21] LABS: Calcium 9.2 MG/DL (8.5-10.1); Osmolality,Calculated 309.8 MOS/KG (273-304); Potassium 4.4 MMOL/L (3.5-5.1)
[2022-03-24] MEDS: INSULIN NPH/REG 70/30 100 UNIT/ML SUBCUT SCH ×2 (09:38→17:57)
[2022-03-24] MEDS: INSULIN REGULAR 100 UNIT/ML SUBCUT SCH ×4 (09:39→21:35)
[2022-03-24] MEDS: SODIUM CHLORIDE 0.9% 1,000 ML IV SCH (09:51)
[2022-03-24] MEDS: FERRIC GLUCONATE COMPLEX 125 MG in SODIUM CHLORIDE 0.9% 100 ML IV SCH (09:51)
[2022-03-24] MEDS ORDERED: LIDOCAINE 2% 5 ML VIAL ONE (12:47)
[2022-03-24] MEDS ORDERED: propofoL 200 MG/20 ML VIAL IV ONE (12:47)
[2022-03-24] MEDS: PANTOPRAZOLE 40 MG VIAL IV SCH ×2 (15:20→21:35)
[2022-03-24] MEDS: ISOSORBIDE MONONITRATE 30 MG TABLET PO SCH (15:21)
[2022-03-24] MEDS: metOLazone 2.5 MG TABLET PO SCH (15:21)
[2022-03-24] MEDS: allopurinoL 100 MG TABLET PO SCH (15:21)
[2022-03-24] MEDS: TORSEMIDE 20 MG TABLET PO SCH (15:21)
[2022-03-24] MEDS: DAPAGLIFLOZIN 10 MG TABLET PO SCH (15:21)
[2022-03-24] MEDS: atenoloL 50 MG TABLET PO SCH (15:21)
[2022-03-24] MEDS: GABAPENTIN 400 MG CAPSULE PO SCH ×2 (15:25→21:34)
[2022-03-24] MEDS: AMIODARONE 200 MG TABLET PO SCH ×2 (15:26→21:34)
[2022-03-24] MEDS ORDERED: BISACODYL 5 MG TABLET PO ONE (17:30)
[2022-03-24] MEDS ORDERED: POLYETHYLENE GLYCOL POWDER 255 GM BOTTLE PO ONE (18:00)
[2022-03-24] MEDS: DILTIAZEM CD 120 MG CAPSULE PO SCH (21:34)
[2022-03-24] MEDS: ATORVASTATIN 40 MG TABLET PO SCH (21:35)
[2022-03-25] MEDS ORDERED: POLYETHYLENE GLYCOL POWDER 255 GM BOTTLE PO ONE (05:00)
[2022-03-25 06:28] LABS: Basophils % 0.4 % (0.0-0.8); Eosinophils # 0.2 10*3/uL (0.0-0.87); Eosinophils % 3.7 % (0.00-10.9); Hematocrit 26.4 VOL% (42.0-52.0); Hemoglobin 8.4 GM/DL (14.0-18.0); Immature Granulocytes % 0.5 %; Immature Granulocytes Absolute 0.03 #; Lymphocytes # 0.4 10*3/uL (1.4-4.0); Lymphocytes % 6.4 % (21.2-54.2); Mean Corpuscular HGB Conc 31.8 GM/DL (32-36); Mean Corpuscular Volume 99.6 FL (87-102); Mean Platelet Volume 9.7 FL (9.6-12.0); Monocytes # 0.7 10*3/uL (0.11-0.8); Monocytes % 12.5 % (1.7-12.7); Neutrophils % 76.5 % (38.7-73.9); Platelet Count 209 T/CUMM (130-400); Red Blood Count 2.65 MC/CUMM (3.8-5.5); Red Cell Distribution Width 18.6 % (9.3-17.3); White Blood Count 5.6 T/CUMM (4-12)
[2022-03-25 07:06] LABS: Calcium 9.1 MG/DL (8.5-10.1); Osmolality,Calculated 308.5 MOS/KG (273-304); Potassium 4.5 MMOL/L (3.5-5.1)
[2022-03-25] MEDS: INSULIN REGULAR 100 UNIT/ML SUBCUT SCH ×4 (08:17→20:44)
[2022-03-25] MEDS: INSULIN NPH/REG 70/30 100 UNIT/ML SUBCUT SCH ×2 (08:17→16:37)
[2022-03-25] MEDS ORDERED: GABAPENTIN 400 MG CAPSULE PO SCH (09:00)
[2022-03-25] MEDS: allopurinoL 100 MG TABLET PO SCH (09:49)
[2022-03-25] MEDS: AMIODARONE 200 MG TABLET PO SCH ×2 (09:49→20:44)
[2022-03-25] MEDS: metOLazone 2.5 MG TABLET PO SCH (09:49)
[2022-03-25] MEDS: atenoloL 50 MG TABLET PO SCH (09:49)
[2022-03-25] MEDS: ISOSORBIDE MONONITRATE 30 MG TABLET PO SCH (09:49)
[2022-03-25] MEDS: TORSEMIDE 20 MG TABLET PO SCH (09:49)
[2022-03-25] MEDS: DAPAGLIFLOZIN 10 MG TABLET PO SCH (09:49)
[2022-03-25] MEDS: FERRIC GLUCONATE COMPLEX 125 MG in SODIUM CHLORIDE 0.9% 100 ML IV SCH (10:50)
[2022-03-25] MEDS: PANTOPRAZOLE 40 MG VIAL IV SCH ×2 (10:51→20:43)
[2022-03-25] MEDS: SODIUM CHLORIDE 0.9% 1,000 ML IV SCH (10:54)
[2022-03-25] MEDS ORDERED: ETOMIDATE 20 MG/10 ML VIAL IV ONE (12:39)
[2022-03-25] MEDS ORDERED: PHENYLEPHRINE 1 MG/10 ML SYRINGE IV ONE (12:49)
[2022-03-25] MEDS: GABAPENTIN 100 MG CAPSULE PO SCH (20:44)
[2022-03-25] MEDS: DILTIAZEM CD 120 MG CAPSULE PO SCH (20:44)
[2022-03-25] MEDS: ATORVASTATIN 40 MG TABLET PO SCH (20:44)
[2022-03-25] MEDS ORDERED: SERTRALINE 25 MG TABLET PO SCH (21:00)
[2022-03-26 05:27] LABS: Basophils % 0.3 % (0.0-0.8); Eosinophils # 0.2 10*3/uL (0.0-0.87); Eosinophils % 2.5 % (0.00-10.9); Hematocrit 27.3 VOL% (42.0-52.0); Hemoglobin 8.6 GM/DL (14.0-18.0); Immature Granulocytes % 0.5 %; Immature Granulocytes Absolute 0.03 #; Lymphocytes # 0.4 10*3/uL (1.4-4.0); Lymphocytes % 5.8 % (21.2-54.2); Mean Corpuscular HGB Conc 31.5 GM/DL (32-36); Mean Platelet Volume 9.3 FL (9.6-12.0); Monocytes # 0.8 10*3/uL (0.11-0.8); Monocytes % 12.6 % (1.7-12.7); Neutrophils % 78.3 % (38.7-73.9); Platelet Count 208 T/CUMM (130-400); Red Blood Count 2.73 MC/CUMM (3.8-5.5); Red Cell Distribution Width 18.6 % (9.3-17.3)
[2022-03-26 05:36] LABS: Calcium 9.5 MG/DL (8.5-10.1); Osmolality,Calculated 304.5 MOS/KG (273-304); Potassium 4.1 MMOL/L (3.5-5.1)
[2022-03-26] MEDS: DAPAGLIFLOZIN 10 MG TABLET PO SCH (08:56)
[2022-03-26] MEDS: atenoloL 50 MG TABLET PO SCH (08:56)
[2022-03-26] MEDS: GABAPENTIN 100 MG CAPSULE PO SCH (08:56)
[2022-03-26] MEDS: ISOSORBIDE MONONITRATE 30 MG TABLET PO SCH (08:56)
[2022-03-26] MEDS: allopurinoL 100 MG TABLET PO SCH (08:57)
[2022-03-26] MEDS: PANTOPRAZOLE 40 MG VIAL IV SCH (08:57)
[2022-03-26] MEDS: TORSEMIDE 20 MG TABLET PO SCH (08:57)
[2022-03-26] MEDS ORDERED: AMIODARONE 200 MG TABLET PO SCH (09:00)
[2022-03-26] MEDS ORDERED: ASPIRIN EC 81 MG TABLET PO SCH (09:00)
[2022-03-26] MEDS ORDERED: FERRIC GLUCONATE COMPLEX 125 MG in SODIUM CHLORIDE 0.9% 100 ML IV SCH (09:00)
[2022-03-26] MEDS: INSULIN REGULAR 100 UNIT/ML SUBCUT SCH ×2 (09:08→12:39)
[2022-03-26] MEDS: INSULIN NPH/REG 70/30 100 UNIT/ML SUBCUT SCH (09:09)
[2022-03-26] MEDS: metOLazone 2.5 MG TABLET PO SCH (09:20)
[2022-03-26 12:11] VITALS: BP 120/49
== END 2022-03-26 13:52 | disposition home health service (06) | DRG 813 ==
LOC: N.ED 06:47 → SUATTDRO 08:46 → N.EDINP 08:46 → N.5E 09:36
PROVIDERS: ADMIT Emergency Medicine; ATTEND Internal Medicine